=== PATIENT | male | born 1980 | race Two or more races ===

== ENCOUNTER 2018-11-15 15:42 | Emergency (ER) | payer SELFPAY ==
[~2018-11-15] VITALS: Ht 175.3 cm; Wt 90.7 kg
[2018-11-15 16:10] VITALS: BP 139/88
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
== END 2018-11-15 18:23 | disposition home or self-care (01) ==
LOC: ER 15:42
DX: S00.03XA Contusion of scalp, initial encounter (principal); R51 Headache; M25.511 Pain in right shoulder; V47.5XXA Car driver injured in collision with fixed or stationary object in traffic accident, initial encounter; Y93.89 Activity, other specified; Y92.410 Unspecified street and highway as the place of occurrence of the external cause; Y99.8 Other external cause status
CPT/HCPCS: 70450; 73030; 99284-25